=== PATIENT | male | born 1955 | race Caucasian/White ===

== ENCOUNTER 2017-05-05 12:15 | Emergency (ER) | payer MEDICARE, OTHER ==
[~2017-05-05] VITALS: Ht 175.3 cm; Wt 100.0 kg
[2017-05-05 12:19] VITALS: TEMP 98.1
[2017-05-05] MEDS ORDERED: NAPROSYN500 MG PO (12:46)
[2017-05-05] MEDS ORDERED: NIASPAN1000 MG PO (12:47)
[2017-05-05] MEDS ORDERED: ASPIRIN 81M81 MG/TA2 PO (12:47)
[2017-05-05] MEDS ORDERED: VIAGRA50 M1 PO (12:48)
[2017-05-05] MEDS ORDERED: TRICOR 48MG48 MG PO (12:48)
[2017-05-05] MEDS ORDERED: AMBIEN 10MG10 MG PO (12:48)
[2017-05-05] MEDS ORDERED: COSAMIN DS 4001 CA1 PO (12:49)
[2017-05-05] MEDS ORDERED: NATURAL E400 IU PO (12:50)
[2017-05-05] MEDS ORDERED: VITAMIN D1000 IU PO (12:50)
[2017-05-05] MEDS ORDERED: GNC L-ARGININE500 MG PO (12:51)
[2017-05-05] MEDS ORDERED: ZESTORETIC 12.51 TA1 PO (13:15)
[2017-05-05 13:35] LABS: BASO # 0.1 (0.0-0.2); BASO % 0.7 % (0.0-2.0); EOS # 0.1 (0.0-0.7); EOS % 0.8 % (0-4.0); GRAN # 4.8 (1.4-6.5); GRAN % 66.1 % (42.2-75.2); HEMOGLOBIN 17.4 g/dl (13.5-18.0); LYMPH # 1.8 (1.2-3.4); LYMPH % 23.9 % (20.0-51.0); MEAN CELL VOLUME 81 fl (80.0-100.0); MEAN CORPUSCULAR HEMOGLOBIN 27 pg (27.0-31.0); MEAN CORPUSCULAR HGB CONC 33 g/dl (33.0-37.0); MEAN PLATELET VOLUME 10.4 fl (7.4-10.4); MONO # 0.6 (0.1-0.6); MONO % 8.1 % (1.7-9.3); PLATELET COUNT 211 K/mm3 (130-400); RED BLOOD COUNT 6.43 M/mm3 (4.20-5.60); REDCELL DISTRIBUTION WIDTH-CV 15.8 % (11.5-14.5); WHITE BLOOD COUNT 7.3 K/mm3 (4.8-10.8)
[2017-05-05 13:39] LABS: PH 6 (5-8); SQUAMOUS EPITHELIAL None Seen /hpf; URINE APPEARANCE Clear; URINE BACTERIA None Seen /hpf; URINE BILIRUBIN Negative (NEGATIVE); URINE BLOOD Negative (NEGATIVE); URINE COLOR Straw; URINE GLUCOSE Negative (NEGATIVE); URINE KETONE Negative (NEGATIVE); URINE RBC 0-2 /hpf; URINE UROBILINOGEN Negative (NEGATIVE); URINE WBC 0-2 /hpf
[2017-05-05 13:45] LABS: HEMATOCRIT 52.1 % (42.0-52.0)
[2017-05-05 13:51] LABS: ADJUSTED CALCIUM 9.4 mg/dL (8.4-10.2); ALANINE AMINOTRANSFERASE 51 U/L (21-72); ALBUMIN 4.3 gm/dL (3.5-5.0); ALKALINE PHOSPHATASE 92 U/L (50-136); ANION GAP 13 mmol/L (7-16); BILIRUBIN,TOTAL 1.5 mg/dL (0.0-1.0); BLOOD UREA NITROGEN 24 mg/dL (9-20); CALCIUM 9.6 mg/dL (8.4-10.2); CARBON DIOXIDE 26 mmol/L (22-30); CHLORIDE 98 mmol/L (98-107); CREATININE, serum 0.77 mg/dL (0.66-1.25); GLUCOSE 125 mg/dL (74-106); SODIUM 138 mmol/L (137-145)
[2017-05-05 13:59] LABS: C-REACTIVE PROTEIN < 0.5 mg/dL (0.0-0.9)
[2017-05-05] MEDS ORDERED: FLAGYL500 MG PO (17:10)
[2017-05-05] MEDS ORDERED: CIPRO750 MG PO (17:10)
[2017-05-05] MEDS ORDERED: PERCOCET 325 MG1 TA2 PO (17:11)
[2017-05-05 17:41] VITALS: BP 109/73; PULSE 69
== END 2017-05-05 17:58 | disposition home or self-care (01) ==
LOC: COL.ER 12:15
PROVIDERS: Nurse Practitioner
DX: K57.32 Diverticulitis of large intestine without perforation or abscess without bleeding (principal); N28.89 Other specified disorders of kidney and ureter; I10 Essential (primary) hypertension
CPT/HCPCS: J1170; J1335; J2405; J3010; J7030; Q9967

== ENCOUNTER → 2017-10-15 | Outpatient (CLI) | payer MEDICARE, OTHER ==
[~2017-10-15] MED LIST: AMBIEN 10MG10 MG PO; ASPIRIN 81M81 MG/TA2 PO; CIPRO750 MG PO; COSAMIN DS 4001 CA1 PO; FLAGYL500 MG PO; GNC L-ARGININE500 MG PO; NAPROSYN500 MG PO; NATURAL E400 IU PO; NIASPAN1000 MG PO; PERCOCET 325 MG1 TA2 PO; TRICOR 48MG48 MG PO; VIAGRA50 M1 PO; VITAMIN D1000 IU PO; ZESTORETIC 12.51 TA1 PO
== END ==
LOC: MHCPAIN 14:19
DX: G89.29 Other chronic pain (principal); M47.27 Other spondylosis with radiculopathy, lumbosacral region; M53.3 Sacrococcygeal disorders, not elsewhere classified; M96.1 Postlaminectomy syndrome, not elsewhere classified
CPT/HCPCS: G0463

== ENCOUNTER → 2017-10-18 | Outpatient (CLI) | payer MEDICARE, OTHER | LOC: MHCPAIN 09:41 | DX: M47.27 Other spondylosis with radiculopathy, lumbosacral region (principal); M96.1 Postlaminectomy syndrome, not elsewhere classified; G96.19 Other disorders of meninges, not elsewhere classified; M51.17 Intervertebral disc disorders with radiculopathy, lumbosacral region; M99.53 Intervertebral disc stenosis of neural canal of lumbar region | CPT/HCPCS: J1100; J2250; J3010; Q9967 ==

== ENCOUNTER → 2017-10-30 | Outpatient (CLI) | payer MEDICARE, OTHER | LOC: MHCPAIN 14:09 | DX: G89.29 Other chronic pain (principal); M47.27 Other spondylosis with radiculopathy, lumbosacral region; M53.3 Sacrococcygeal disorders, not elsewhere classified; M96.1 Postlaminectomy syndrome, not elsewhere classified | CPT/HCPCS: G0463 ==

== ENCOUNTER → 2017-11-29 | Outpatient (CLI) | payer MEDICARE, OTHER | LOC: MHCPAIN 10:50 | DX: M47.27 Other spondylosis with radiculopathy, lumbosacral region (principal); M96.1 Postlaminectomy syndrome, not elsewhere classified; M51.16 Intervertebral disc disorders with radiculopathy, lumbar region; M51.17 Intervertebral disc disorders with radiculopathy, lumbosacral region; M48.061 Spinal stenosis, lumbar region without neurogenic claudication | CPT/HCPCS: J1100; J2250; J3010; Q9967 ==

== ENCOUNTER → 2018-01-07 | Outpatient (CLI) | payer MEDICARE, OTHER | LOC: MHCPAIN 10:19 | DX: G89.29 Other chronic pain (principal); M47.27 Other spondylosis with radiculopathy, lumbosacral region; M53.3 Sacrococcygeal disorders, not elsewhere classified; M96.1 Postlaminectomy syndrome, not elsewhere classified | CPT/HCPCS: G0463 ==

== ENCOUNTER → 2018-01-24 | Outpatient (CLI) | payer MEDICARE, OTHER | LOC: MHCPAIN 11:06 | DX: M47.817 Spondylosis without myelopathy or radiculopathy, lumbosacral region (principal); M96.1 Postlaminectomy syndrome, not elsewhere classified | CPT/HCPCS: J1040; Q9967 ==

== ENCOUNTER 2018-02-13 17:39 | Emergency (ER) | payer MEDICARE, OTHER ==
[~2018-02-13] VITALS: Ht 175.3 cm; Wt 90.9 kg
[2018-02-13 17:45] VITALS: TEMP 98.6
[2018-02-13 18:15] LABS: BASO % 0.3 % (0.0-2.0); EOS # 0.1 (0.0-0.7); GRAN # 3.9 (1.4-6.5); GRAN % 64.9 % (42.2-75.2); HEMATOCRIT 44.7 % (42.0-52.0); HEMOGLOBIN 14.9 g/dl (13.5-18.0); LYMPH # 1.5 (1.2-3.4); LYMPH % 25.2 % (20.0-51.0); MEAN CELL VOLUME 83 fl (80.0-100.0); MEAN CORPUSCULAR HEMOGLOBIN 28 pg (27.0-31.0); MEAN CORPUSCULAR HGB CONC 33 g/dl (33.0-37.0); MEAN PLATELET VOLUME 10.4 fl (7.4-10.4); MONO # 0.5 (0.1-0.6); MONO % 8.4 % (1.7-9.3); PLATELET COUNT 220 K/mm3 (130-400); RED BLOOD COUNT 5.37 M/mm3 (4.20-5.60); REDCELL DISTRIBUTION WIDTH-CV 13.7 % (11.5-14.5)
[2018-02-13 18:26] LABS: ALANINE AMINOTRANSFERASE 41 U/L (21-72); ALKALINE PHOSPHATASE 62 U/L (50-136); ANION GAP 11 mmol/L (7-16); AST,SGOT 29 U/L (15-37); BILIRUBIN,TOTAL 0.6 mg/dL (0.0-1.0); BLOOD UREA NITROGEN 18 mg/dL (9-20); CALCIUM 9.4 mg/dL (8.4-10.2); CARBON DIOXIDE 25 mmol/L (22-30); CHLORIDE 107 mmol/L (98-107); CREATININE, serum 0.84 mg/dL (0.66-1.25); GLUCOSE 99 mg/dL (74-106); POTASSIUM 3.9 mmol/L (3.4-5.0); SODIUM 143 mmol/L (137-145); TOTAL PROTEIN 7.6 gm/dL (6.4-8.2)
[2018-02-13 18:32] LABS: COLLECTION METHOD CLEAN CATCH
[2018-02-13 18:36] LABS: ACETAMINOPHEN < 10 ug/mL (10-30); ALCOHOL(ethanol),MEDICAL < 10 mg/dL; SALICYLATE < 1.0 mg/dL
[2018-02-13 18:40] LABS: PH 6 (5-8); SQUAMOUS EPITHELIAL 0-2 /hpf; URINE APPEARANCE Clear; URINE BACTERIA None Seen /hpf; URINE BILIRUBIN Negative (NEGATIVE); URINE BLOOD Negative (NEGATIVE); URINE COLOR Yellow; URINE GLUCOSE Negative (NEGATIVE); URINE KETONE Negative (NEGATIVE); URINE LEUKOCYTE ESTERASE Negative (NEGATIVE); URINE NITRATE Negative (NEGATIVE); URINE PROTEIN(semi-quant) Negative (NEGATIVE); URINE RBC 0-2 /hpf
[2018-02-13 18:51] LABS: TRICYCLIC ANTIDEPRESS URINE NEGATIVE
[2018-02-13 20:09] VITALS: BP 141/79; PULSE 70
== END 2018-02-13 20:10 | disposition home or self-care (01) ==
LOC: COL.ER 17:39
PROVIDERS: Family Medicine
DX: F32.9 Major depressive disorder, single episode, unspecified (principal); F41.9 Anxiety disorder, unspecified; Z79.82 Long term (current) use of aspirin

== ENCOUNTER → 2018-02-25 | Outpatient (CLI) | payer MEDICARE, OTHER | LOC: MHCPAIN 11:13 | DX: G89.29 Other chronic pain (principal); M47.817 Spondylosis without myelopathy or radiculopathy, lumbosacral region; M54.16 Radiculopathy, lumbar region; M53.3 Sacrococcygeal disorders, not elsewhere classified; M96.1 Postlaminectomy syndrome, not elsewhere classified | CPT/HCPCS: G0463 ==

== ENCOUNTER → 2018-06-10 | Outpatient (CLI) | payer MEDICARE, OTHER | LOC: MHCPAIN 10:48 | DX: G89.29 Other chronic pain (principal); M96.1 Postlaminectomy syndrome, not elsewhere classified; M54.16 Radiculopathy, lumbar region; M53.3 Sacrococcygeal disorders, not elsewhere classified; M47.817 Spondylosis without myelopathy or radiculopathy, lumbosacral region | CPT/HCPCS: G0463 ==

== ENCOUNTER → 2018-06-13 | Outpatient (CLI) | payer MEDICARE, OTHER | LOC: MHCPAIN 08:48 | DX: M47.817 Spondylosis without myelopathy or radiculopathy, lumbosacral region (principal); M54.16 Radiculopathy, lumbar region | CPT/HCPCS: J1040; J2250; J3010; Q9967 ==

== ENCOUNTER → 2018-07-24 | Outpatient (CLI) | payer MEDICARE, OTHER | LOC: MHCPAIN 14:19 | DX: G89.29 Other chronic pain (principal); M47.817 Spondylosis without myelopathy or radiculopathy, lumbosacral region; M54.16 Radiculopathy, lumbar region; M53.3 Sacrococcygeal disorders, not elsewhere classified; M96.1 Postlaminectomy syndrome, not elsewhere classified | CPT/HCPCS: G0463 ==

== ENCOUNTER → 2018-08-01 | Outpatient (CLI) | payer MEDICARE, OTHER | LOC: MHCPAIN 13:07 | DX: M47.817 Spondylosis without myelopathy or radiculopathy, lumbosacral region (principal); M96.1 Postlaminectomy syndrome, not elsewhere classified; M54.5 Low back pain ==

== ENCOUNTER → 2018-08-05 | Outpatient (CLI) | payer MEDICARE, OTHER | LOC: MHCPAIN 10:42 | DX: G89.29 Other chronic pain (principal); M47.817 Spondylosis without myelopathy or radiculopathy, lumbosacral region; M54.16 Radiculopathy, lumbar region; M53.3 Sacrococcygeal disorders, not elsewhere classified; M96.1 Postlaminectomy syndrome, not elsewhere classified | CPT/HCPCS: G0463 ==

== ENCOUNTER → 2018-08-15 | Outpatient (CLI) | payer MEDICARE, OTHER | LOC: MHCPAIN 12:02 | DX: M47.817 Spondylosis without myelopathy or radiculopathy, lumbosacral region (principal); M54.5 Low back pain | CPT/HCPCS: J1100; J2250; J3010 ==

== ENCOUNTER → 2018-08-22 | Outpatient (CLI) | payer MEDICARE, OTHER | LOC: MHCPAIN 13:46 | DX: M47.817 Spondylosis without myelopathy or radiculopathy, lumbosacral region (principal); M54.5 Low back pain | CPT/HCPCS: J1100; J2250; J3010 ==

== ENCOUNTER → 2018-09-26 | Outpatient (CLI) | payer MEDICARE, OTHER | LOC: COL.RAD 08:51 | DX: N13.2 Hydronephrosis with renal and ureteral calculous obstruction (principal); R93.421 Abnormal radiologic findings on diagnostic imaging of right kidney ==

== ENCOUNTER 2018-11-10 13:22 | Emergency (ER) | payer MEDICARE, OTHER ==
[~2018-11-10] VITALS: Ht 175.3 cm; Wt 95.5 kg
[2018-11-10 13:25] VITALS: BP 143/101; TEMP 98.4
[2018-11-10] MEDS ORDERED: LIDODERM 5% PATC1 EA TP (13:47)
[2018-11-10] MEDS ORDERED: FLEXERIL 1010 MG/TAB PO (13:47)
[2018-11-10 14:44] VITALS: PULSE 79
== END 2018-11-10 14:45 | disposition home or self-care (01) ==
LOC: COL.ER 13:22
DX: S20.212A Contusion of left front wall of thorax, initial encounter (principal); Z79.82 Long term (current) use of aspirin; W18.39XA Other fall on same level, initial encounter; Y92.009 Unspecified place in unspecified non-institutional (private) residence as the place of occurrence of the external cause

== ENCOUNTER → 2019-01-08 | Outpatient (CLI) | payer MEDICARE, OTHER ==
[~2019-01-08] MED LIST changes: +FLEXERIL 1010 MG/TAB PO; +LIDODERM 5% PATC1 EA TP
== END ==
LOC: MHCPAIN 09:02
DX: G89.29 Other chronic pain (principal); M47.817 Spondylosis without myelopathy or radiculopathy, lumbosacral region; M54.16 Radiculopathy, lumbar region; M53.3 Sacrococcygeal disorders, not elsewhere classified; M96.1 Postlaminectomy syndrome, not elsewhere classified
CPT/HCPCS: G0463

== ENCOUNTER → 2019-01-09 | Outpatient (CLI) | payer MEDICARE, OTHER | LOC: MHCPAIN 10:51 | DX: M47.817 Spondylosis without myelopathy or radiculopathy, lumbosacral region (principal); M54.16 Radiculopathy, lumbar region | CPT/HCPCS: J1100; Q9967 ==

== ENCOUNTER → 2019-01-21 | Outpatient (CLI) | payer MEDICARE, OTHER | LOC: MHCPAIN 11:06 | DX: G89.29 Other chronic pain (principal); M47.817 Spondylosis without myelopathy or radiculopathy, lumbosacral region; M54.16 Radiculopathy, lumbar region; M53.3 Sacrococcygeal disorders, not elsewhere classified; M96.1 Postlaminectomy syndrome, not elsewhere classified; G89.3 Neoplasm related pain (acute) (chronic) | CPT/HCPCS: G0463 ==

== ENCOUNTER → 2019-01-21 | Outpatient (CLI) | payer MEDICARE, OTHER ==
[2019-01-21 14:14] LABS: CREATININE, serum 0.98 mg/dL (0.66-1.25)
== END ==
LOC: COL.LAB 13:46
PROVIDERS: Anesthesiology Pain Medicine
DX: G89.3 Neoplasm related pain (acute) (chronic) (principal); M96.1 Postlaminectomy syndrome, not elsewhere classified

== ENCOUNTER → 2019-01-23 | Outpatient (CLI) | payer MEDICARE, OTHER | LOC: COL.RAD 10:00 | DX: C64.1 Malignant neoplasm of right kidney, except renal pelvis (principal); N28.89 Other specified disorders of kidney and ureter; M43.8X6 Other specified deforming dorsopathies, lumbar region | CPT/HCPCS: Q9967 ==

== ENCOUNTER 2019-02-19 10:49 | Emergency (ER) | payer MEDICARE, OTHER ==
[~2019-02-19] VITALS: Ht 172.7 cm; Wt 88.6 kg
[2019-02-19 10:53] VITALS: TEMP 98.3
[2019-02-19 12:08] LABS: COLLECTION METHOD CLEAN CATCH
[2019-02-19 12:14] LABS: PH 6 (5-8); SQUAMOUS EPITHELIAL None Seen /hpf; URINE APPEARANCE Clear; URINE BACTERIA None Seen /hpf; URINE BILIRUBIN Negative (NEGATIVE); URINE BLOOD Negative (NEGATIVE); URINE COLOR Straw; URINE GLUCOSE 3+ (NEGATIVE); URINE KETONE Trace (NEGATIVE); URINE LEUKOCYTE ESTERASE Negative (NEGATIVE); URINE NITRATE Negative (NEGATIVE); URINE PROTEIN(semi-quant) Negative (NEGATIVE); URINE RBC 0-2 /hpf; URINE UROBILINOGEN Negative (NEGATIVE)
[2019-02-19 12:25] LABS: ALANINE AMINOTRANSFERASE 42 U/L (21-72); ALBUMIN 3.1 gm/dL (3.5-5.0); ALKALINE PHOSPHATASE 206 U/L (50-136); ANION GAP 6 mmol/L (7-16); AST,SGOT 60 U/L (15-37); BASO % 0.3 % (0.0-2.0); BILIRUBIN,TOTAL 1.2 mg/dL (0.0-1.0); BLOOD UREA NITROGEN 24 mg/dL (9-20); CALCIUM 8.5 mg/dL (8.4-10.2); CARBON DIOXIDE 28 mmol/L (22-30); CREATININE, serum 0.78 (0.66-1.25); EOS % 0.1 % (0-4.0); GRAN # 5.8 (1.4-6.5); GRAN % 76.6 % (42.2-75.2); HEMATOCRIT 42.6 % (42.0-52.0); HEMOGLOBIN 14.7 g/dl (13.5-18.0); LYMPH # 1.1 (1.2-3.4); LYMPH % 13.9 % (20.0-51.0); MEAN CELL VOLUME 78 fl (80.0-100.0); MEAN CORPUSCULAR HEMOGLOBIN 27 pg (27.0-31.0); MEAN CORPUSCULAR HGB CONC 35 g/dl (33.0-37.0); MEAN PLATELET VOLUME 10.6 fl (7.4-10.4); MONO # 0.5 (0.1-0.6); MONO % 6.1 % (1.7-9.3); PLATELET COUNT 220 K/mm3 (130-400); POTASSIUM 4.9 mmol/L (3.4-5.0); RED BLOOD COUNT 5.49 M/mm3 (4.20-5.60); REDCELL DISTRIBUTION WIDTH-CV 13.9 % (11.5-14.5); SODIUM 121 mmol/L (137-145); TOTAL PROTEIN 5.9 gm/dL (6.4-8.2)
[2019-02-19 12:46] LABS: CHLORIDE 87 mmol/L (98-107); GLUCOSE 564 mg/dL (74-106); TROPONIN-I < 0.012 ng/mL (0.000-0.035)
[2019-02-19] MEDS ORDERED: COZAAR 50MG50 MG/TAB PO (12:48)
[2019-02-19] MEDS ORDERED: NAPROSYN500 MG PO (12:49)
[2019-02-19] MEDS ORDERED: NIASPAN1000 MG PO (12:49)
[2019-02-19] MEDS ORDERED: PRILOSEC 20MG20 MG PO (12:50)
[2019-02-19] MEDS ORDERED: PROBIOTIC FORMU1 CAP PO (12:51)
[2019-02-19] MEDS ORDERED: DECADRON 4MG TAB4 MG PO (12:51)
[2019-02-19 15:15] VITALS: BP 176/88; PULSE 72
== END 2019-02-19 15:15 | disposition short-term general hospital (02) ==
LOC: COL.ER 10:49
PROVIDERS: Nurse Practitioner
DX: S12.200A Unspecified displaced fracture of third cervical vertebra, initial encounter for closed fracture (principal); I10 Essential (primary) hypertension; C64.9 Malignant neoplasm of unspecified kidney, except renal pelvis; W18.39XA Other fall on same level, initial encounter; Y92.009 Unspecified place in unspecified non-institutional (private) residence as the place of occurrence of the external cause
CPT/HCPCS: J1815; J2270; J7030

== ENCOUNTER → 2019-04-01 | Outpatient (CLI) | payer MEDICARE, OTHER ==
[~2019-04-01] MED LIST changes: +COZAAR 50MG50 MG/TAB PO; +DECADRON 4MG TAB4 MG PO; +PRILOSEC 20MG20 MG PO; +PROBIOTIC FORMU1 CAP PO
== END ==
LOC: SUN.DIA 10:11
DX: E11.9 Type 2 diabetes mellitus without complications (principal); E78.5 Hyperlipidemia, unspecified; Z79.4 Long term (current) use of insulin
CPT/HCPCS: G0108

== ENCOUNTER → 2020-04-21 | Outpatient (CLI) | payer MEDICARE, OTHER | LOC: COL.LAB 09:35 | DX: Z20.828 Contact with and (suspected) exposure to other viral communicable diseases (principal) ==

== ENCOUNTER → 2020-05-21 | Outpatient (CLI) | payer MEDICARE | LOC: COL.LAB 08:25 | DX: Z20.828 Contact with and (suspected) exposure to other viral communicable diseases (principal) ==

== ENCOUNTER 2020-06-06 15:23 | Emergency (ER) | payer MEDICARE, OTHER ==
[~2020-06-06] VITALS: Ht 172.7 cm; Wt 90.9 kg
[2020-06-06 15:30] VITALS: BP 170/83; TEMP 98.4
[2020-06-06 15:55] LABS: BASO % 0.4 % (0.0-2.0); EOS # 0.1 (0.0-0.7); EOS % 1.3 % (0-4.0); GRAN # 4.9 (1.4-6.5); HEMATOCRIT 45.9 % (42.0-52.0); HEMOGLOBIN 14.9 g/dl (13.5-18.0); LYMPH # 1.3 (1.2-3.4); MEAN CELL VOLUME 83 fl (80.0-100.0); MEAN CORPUSCULAR HEMOGLOBIN 27 pg (27.0-31.0); MEAN CORPUSCULAR HGB CONC 33 g/dl (33.0-37.0); MEAN PLATELET VOLUME 10.5 fl (7.4-10.4); MONO # 0.7 (0.1-0.6); MONO % 9.9 % (1.7-9.3); PLATELET COUNT 192 K/mm3 (130-400); RED BLOOD COUNT 5.51 M/mm3 (4.20-5.60); REDCELL DISTRIBUTION WIDTH-CV 13.5 % (11.5-14.5)
[2020-06-06 16:08] LABS: ALANINE AMINOTRANSFERASE 22 U/L (4-49); ALBUMIN 4.2 gm/dL (3.5-5.0); ALKALINE PHOSPHATASE 60 U/L (50-136); ANION GAP 7 mmol/L (7-16); AST,SGOT 31 U/L (15-37); BILIRUBIN,TOTAL 0.7 mg/dL (0.0-1.0); BLOOD UREA NITROGEN 16 mg/dL (9-20); CALCIUM 9.4 mg/dL (8.4-10.2); CARBON DIOXIDE 29 mmol/L (22-30); CHLORIDE 103 mmol/L (98-107); CREATININE, serum 0.89 (0.66-1.25); GLUCOSE 113 mg/dL (74-106); LIPASE 94 U/L (23-300); POTASSIUM 4.4 mmol/L (3.4-5.0); SODIUM 139 mmol/L (137-145); TOTAL PROTEIN 7.5 gm/dL (6.4-8.2)
[2020-06-06 16:27] LABS: C-REACTIVE PROTEIN < 0.5 mg/dL (0.0-0.9)
[2020-06-06 18:45] VITALS: PULSE 61
== END 2020-06-06 18:45 | disposition home or self-care (01) ==
LOC: COL.ER 15:23
PROVIDERS: Emergency Medicine
DX: R10.32 Left lower quadrant pain (principal); K59.00 Constipation, unspecified; R11.0 Nausea; Z90.5 Acquired absence of kidney; Z85.528 Personal history of other malignant neoplasm of kidney
CPT/HCPCS: J1170; J2270; J2405; J3010; J7030; Q9967

== ENCOUNTER → 2020-06-23 | Outpatient (CLI) | payer MEDICARE, OTHER | LOC: COL.LAB 10:04 | DX: Z20.828 Contact with and (suspected) exposure to other viral communicable diseases (principal) ==

== ENCOUNTER → 2020-08-11 | Outpatient (CLI) | payer MEDICARE, OTHER | LOC: COL.LAB 09:51 | DX: Z20.828 Contact with and (suspected) exposure to other viral communicable diseases (principal) ==

== ENCOUNTER 2020-08-17 09:10 | Day surgery (SDC) | payer MEDICARE, OTHER ==
[~2020-08-17] VITALS: Ht 172.8 cm; Wt 96.7 kg
[2020-08-17] VITALS (12 sets, daily range): BP systolic 102–129; BP diastolic 67–83; PULSE 56–67; TEMP 98.5
[2020-08-17] MEDS ORDERED: NIASPAN 500MG500 MG PO (10:00)
[2020-08-17] MEDS ORDERED: LOFIBRA134 MG PO (10:00)
[2020-08-17] MEDS ORDERED: AMBIEN 10MG10 MG PO (10:01)
[2020-08-17] MEDS ORDERED: VIAGRA50 M1 PO (10:01)
[2020-08-17] MEDS ORDERED: OMEGA-3 1000 MG1 CAP PO (10:02)
[2020-08-17] MEDS ORDERED: MEGARED OMEGA-1 EAC5 PO (10:02)
[2020-08-17] MEDS ORDERED: GNC L-ARGININE500 MG PO (10:02)
[2020-08-17] MEDS ORDERED: VITAMIND3 5000 PO (10:03)
[2020-08-17] MEDS ORDERED: NATURAL E400 IU PO (10:03)
[2020-08-17] MEDS ORDERED: ASPIRIN E.C. 8181 MG PO (10:04)
[2020-08-17] MEDS ORDERED: MAGNESIUM250 M1 PO (10:04)
[2020-08-17] MEDS ORDERED: TIMOLOL MALEATE5 M1 OU (10:05)
[2020-08-17] MEDS ORDERED: LIPITOR20 MG PO (10:05)
[2020-08-17] MEDS ORDERED: CYMBALTA 30MG30 MG PO (10:05)
[2020-08-17] MEDS ORDERED: CORTEF 20MG TAB20 MG PO (10:06)
[2020-08-17] MEDS ORDERED: ROXICODONE15 MG PO (10:06)
[2020-08-17] MEDS ORDERED: LYRICA 75MG CAP75 MG PO (10:06)
[2020-08-17] MEDS ORDERED: PREDNISONE 5MG5 MG PO (10:07)
[2020-08-17 10:15] LABS: CALCIUM 8.5 mg/dL (8.4-10.2); CREATININE, serum 0.81 (0.66-1.25); POTASSIUM 4.1 mmol/L (3.4-5.0)
[2020-08-17 10:21] LABS: HEMATOCRIT 45.1 % (42.0-52.0); HEMOGLOBIN 14.9 g/dl (13.5-18.0); MEAN CELL VOLUME 81 fl (80.0-100.0); MEAN CORPUSCULAR HEMOGLOBIN 27 pg (27.0-31.0); MEAN CORPUSCULAR HGB CONC 33 g/dl (33.0-37.0); MEAN PLATELET VOLUME 10.6 fl (7.4-10.4); PLATELET COUNT 150 K/mm3 (130-400); RED BLOOD COUNT 5.59 M/mm3 (4.20-5.60); REDCELL DISTRIBUTION WIDTH-CV 13.2 % (11.5-14.5)
[2020-08-17 10:33] LABS: INR 1.2 (0.8-3.0); PROTHROMBIN TIME 12.9 SECONDS (9.7-12.8)
--- NOTE | 2020-08-17 10:42 | NUR ---
SEE MEREGE FOR ALL MEDICATION ADMIN. TIMES, INTRA AND POST SEDATION ASSESSMENTS
--- NOTE | 2020-08-17 15:25 | NUR ---
DC instructions reviewed, pt expresses understanding. No bleeding from radial puncture site. Site dressed with 2x2 gauze and bandaid. Arm board sent with pt. IV DC'd with catheter intact, and bleeding controlled at site. Pt is assisted out to 's car by wheelchair with belongings.
== END 2020-08-17 15:54 | disposition home or self-care (01) ==
LOC: COL.CAR 09:10
PROVIDERS: Internal Medicine Cardiovascular Disease
DX: R94.39 Abnormal result of other cardiovascular function study (principal); R07.9 Chest pain, unspecified; I48.0 Paroxysmal atrial fibrillation; E78.5 Hyperlipidemia, unspecified; F43.10 Post-traumatic stress disorder, unspecified; F32.9 Major depressive disorder, single episode, unspecified; G47.30 Sleep apnea, unspecified; G47.00 Insomnia, unspecified; R53.83 Other fatigue; F41.9 Anxiety disorder, unspecified; Z20.828 Contact with and (suspected) exposure to other viral communicable diseases; Z79.82 Long term (current) use of aspirin; Z79.899 Other long term (current) drug therapy; Z85.528 Personal history of other malignant neoplasm of kidney
CPT/HCPCS: J1644; J2250; J3010

== ENCOUNTER → 2020-09-16 | Outpatient (CLI) | payer MEDICARE, OTHER ==
[~2020-09-16] MED LIST changes: +ASPIRIN E.C. 8181 MG PO; +CORTEF 20MG TAB20 MG PO; +CYMBALTA 30MG30 MG PO; +LIPITOR20 MG PO; +LOFIBRA134 MG PO; +LYRICA 75MG CAP75 MG PO; +MAGNESIUM250 M1 PO; +MEGARED OMEGA-1 EAC5 PO; +NIASPAN 500MG500 MG PO; +OMEGA-3 1000 MG1 CAP PO; +PREDNISONE 5MG5 MG PO; +ROXICODONE15 MG PO; +TIMOLOL MALEATE5 M1 OU; +VITAMIND3 5000 PO
== END ==
LOC: COL.LAB 08:31
DX: Z20.828 Contact with and (suspected) exposure to other viral communicable diseases (principal)

== ENCOUNTER → 2020-10-13 | Outpatient (CLI) | payer MEDICARE, OTHER | LOC: COL.LAB 12:36 | DX: Z20.828 Contact with and (suspected) exposure to other viral communicable diseases (principal) ==

== ENCOUNTER → 2020-11-12 | Outpatient (CLI) | payer MEDICARE, OTHER | LOC: COL.LAB 15:05 | DX: Z20.828 Contact with and (suspected) exposure to other viral communicable diseases (principal) ==

== ENCOUNTER → 2020-12-17 | Outpatient (CLI) | payer MEDICARE, OTHER | LOC: COL.LAB 12:13 | DX: Z20.822 Contact with and (suspected) exposure to COVID-19 (principal) ==

== ENCOUNTER → 2021-07-20 | Outpatient (CLI) | payer MEDICARE, OTHER ==
[2021-07-20 15:02] LABS: BASO % 0.5 % (0.0-2.0); EOS # 0.1 (0.0-0.7); GRAN # 5.4 (1.4-6.5); GRAN % 69.1 % (42.2-75.2); HEMATOCRIT 42.3 % (42.0-52.0); HEMOGLOBIN 13.3 g/dl (13.5-18.0); LYMPH # 1.6 (1.2-3.4); LYMPH % 19.8 % (20.0-51.0); MEAN CELL VOLUME 80 fl (80.0-100.0); MEAN CORPUSCULAR HEMOGLOBIN 25 pg (27.0-31.0); MEAN CORPUSCULAR HGB CONC 31 g/dl (33.0-37.0); MEAN PLATELET VOLUME 9.8 fl (7.4-10.4); MONO # 0.7 (0.1-0.6); PLATELET COUNT 289 K/mm3 (130-400); RED BLOOD COUNT 5.26 M/mm3 (4.20-5.60); REDCELL DISTRIBUTION WIDTH-CV 14.9 % (11.5-14.5)
[2021-07-20 15:08] LABS: ALBUMIN 3.8 gm/dL (3.5-5.0); BILIRUBIN,TOTAL 0.6 mg/dL (0.0-1.0); CALCIUM 9.2 mg/dL (8.4-10.2); CREATININE, serum 1.06 (0.66-1.25); POTASSIUM 4.2 mmol/L (3.4-5.0); TOTAL PROTEIN 7.4 gm/dL (6.4-8.2)
== END ==
LOC: COL.RAD 14:12
DX: Z00.6 Encounter for examination for normal comparison and control in clinical research program (principal); C64.1 Malignant neoplasm of right kidney, except renal pelvis; Z98.890 Other specified postprocedural states
CPT/HCPCS: Q9967

== ENCOUNTER → 2021-07-22 | Outpatient (CLI) | payer MEDICARE, OTHER | LOC: COL.LAB 16:46 | DX: C64.1 Malignant neoplasm of right kidney, except renal pelvis (principal); C79.51 Secondary malignant neoplasm of bone ==

== ENCOUNTER 2021-09-14 11:02 | Emergency (ER) | payer MEDICARE, OTHER ==
[~2021-09-14] VITALS: Ht 172.7 cm; Wt 111.4 kg
[2021-09-14 11:41] LABS: BASO % 0.4 % (0.0-2.0); EOS # 0.1 K/mm3 (0.0-0.7); GRAN # 3.5 K/mm3 (1.4-6.5); GRAN % 49.3 % (42.2-75.2); HEMATOCRIT 45.8 % (42.0-52.0); HEMOGLOBIN 14.5 g/dl (13.5-18.0); LYMPH # 3.2 K/mm3 (1.2-3.4); LYMPH % 44.4 % (20.0-51.0); MEAN CELL VOLUME 81 fl (80.0-100.0); MEAN CORPUSCULAR HEMOGLOBIN 26 pg (27.0-31.0); MEAN CORPUSCULAR HGB CONC 32 g/dl (33.0-37.0); MEAN PLATELET VOLUME 9.6 fl (7.4-10.4); MONO # 0.3 K/mm3 (0.1-0.6); MONO % 4.8 % (1.7-9.3); PLATELET COUNT 165 K/mm3 (130-400); RED BLOOD COUNT 5.67 M/mm3 (4.20-5.60); REDCELL DISTRIBUTION WIDTH-CV 18.6 % (11.5-14.5)
[2021-09-14 11:44] LABS: ALBUMIN 2.8 gm/dL (3.4-4.8); BILIRUBIN,TOTAL 0.7 mg/dL (0.2-1.2); CALCIUM 8.1 mg/dL (8.4-10.2); CREATININE, serum 1.39 mg/dL (0.72-1.25); TOTAL PROTEIN 6.3 gm/dL (6.2-8.1)
[2021-09-14 11:46] LABS: POTASSIUM 2.9 mmol/L (3.5-4.5)
[2021-09-14 12:15] VITALS: BP 0/0; PULSE 0
--- NOTE | 2021-09-15 13:03 | NUR ---
On 09/14/21, social insurance administrator met with patient's spouse and son and offered emotional support as patient . Francis issue clerk was present and supporting family.
== END 2021-09-14 14:45 | disposition expired ==
LOC: COL.ER 11:02
PROVIDERS: Personal Emergency Response Attendant
DX: I46.9 Cardiac arrest, cause unspecified (principal); C64.9 Malignant neoplasm of unspecified kidney, except renal pelvis; Z90.5 Acquired absence of kidney; Z20.822 Contact with and (suspected) exposure to COVID-19
CPT/HCPCS: J0171; J0696; J7030